=== PATIENT | female | born 1965 | race Caucasian/White ===

== ENCOUNTER 2017-03-30 18:42 | Emergency (ER) | payer BC, OTHER ==
[2017-03-30 18:57] VITALS: TEMP 99.3; O2SAT 94
--- NOTE | 2017-03-30 19:02 | ED.PDOC ---
History of Present Illness - General Chief Complaint: Respiratory Problem Stated Complaint: fever, sob Time Seen by Provider: 03/30/17 18:45 Source: patient Exam Limitations: no limitations - History of Present Illness Initial Comments: the patient is a 52-year-old female presenting to the emergency room secondary to mild cough, congestion and mild sore throat along with a runny nose and mild pressure in her ears. No definite fevers but there is a mild elevation in her basal temperature today. No syncope or near-syncope. No recurrent pneumonias. She has increasing pressure in her sinuses just today. Timing/Duration: 24 hours Severity: moderate Improving Factors: nothing Worsening Factors: nothing Associated Symptoms: cough, malaise Allergies/Adverse Reactions: Allergies Penicillins Allergy (Verified 03/30/17 18:54) Review of Systems - Review of Systems Constitutional: States: fever, malaise EENTM: States: nose congestion, throat pain Respiratory: States: cough Cardiology: States: no symptoms reported Gastrointestinal/Abdominal: States: no symptoms reported Genitourinary: States: no symptoms reported Musculoskeletal: States: no symptoms reported Skin: States: no symptoms reported Neurological: States: no symptoms reported Endocrine: States: no symptoms reported All other Systems: No Change from Baseline Past Medical History (General) - Patient Medical History Hx Hypertension: Yes Surgical History: other - Vaccination History Hx Influenza Vaccination: Yes - Social History Hx Tobacco Use: Yes Hx Alcohol Use: Yes - 2 glasses wine hs Hx Substance Use: No Hx Substance Use Treatment: No Hx Depression: No - Activities of Daily Living Hospice Agency (if applicable):: None - Female History Patient is a Female of Child Bearing Age (10 -59 yrs old): Yes Patient : No Family Medical History - Family History Mother Family History: Unknown Physical Exam - Physical Exam General Appearance: Alert, Comfortable, No apparent distress Eye Exam: bilateral normal Ears, Nose, Throat: hearing grossly normal, nasal congestion, pharyngeal erythema Neck: non-tender, full range of motion Respiratory: chest non-tender, lungs clear, normal breath sounds, no respiratory distress, no accessory muscle use Cardiovascular/Chest: normal peripheral pulses, regular rate, rhythm, no edema Peripheral Pulses: radial,right: 2+, radial,left: 2+, dorsalis pedis,right: 2+, dorsalis pedis,left: 2+ Extremity: normal range of motion, normal inspection, no pedal edema, normal capillary refill 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 She needs to keep herself well-hydrated. She can take 2 Aleve twice a day with food. She is to additionally shrimp picker some Flonase or Rhinocort and use 1 spray per nostril twice a day for the next 5 days. She can continue her Mucinex nasal spray as needed. Additionally if her nose is running, and she can use Zyrtec 10 mg twice daily as well. A humidifier at night may prove beneficial. ER warnings were given for any significant worsening. She should expect symptoms to last between 5 and 7 days. No evidence of pneumonia at this time. she should consider herself contagious at this time. Departure - Departure Clinical Impression: Common cold Disposition: Discharge to Home or Self Care Condition: Fair Departure Forms: ED Discharge - Pt. Copy, Patient Portal Self Enrollment Instructions: DI for Common Cold Diet: regular diet Activity: increase activity as tolerated Referrals: Roly Garcia MD [Family Provider] - 1-2 Weeks Additional Instructions: the patient is presenting with a viral upper respiratory tract infection. She needs to keep herself well-hydrated. She can take 2 Aleve twice a day with food. She is to additionally shrimp picker some Flonase or Rhinocort and use 1 spray per nostril twice a day for the next 5 days. She can continue her Mucinex nasal spray as needed. Additionally if her nose is running, and she can use Zyrtec 10 mg twice daily as well. A humidifier at night may prove beneficial. ER warnings were given for any significant worsening. She should expect symptoms to last between 5 and 7 days. No evidence of pneumonia at this time. she should consider herself contagious at this time.
[2017-03-30 19:11] VITALS: BP 150/91
== END 2017-03-30 19:11 | disposition home or self-care (01) ==
LOC: ER 18:42
DX: J00 Acute nasopharyngitis [common cold] (principal); I10 Essential (primary) hypertension; Z87.891 Personal history of nicotine dependence; Z88.0 Allergy status to penicillin

== ENCOUNTER → 2019-03-09 | Outpatient (CLI) | payer BC ==
--- NOTE | 2019-03-09 12:11 | CT ---
EXAM DESCRIPTION: Abdomen/Pelvis w/wo Contrast: Computed Tomography. CLINICAL HISTORY: ABDOMINAL PAIN COMPARISON: None. TECHNIQUE: Spiral-axial scans at 5 x 5 mm intervals through the abdomen and pelvis before and after 75 mL Optiray 320 nonionic IV contrast. No oral contrast. Coronal and sagittal 2.0 mm reconstructions. 5 mm Delayed helical-axial scans, liver through the pubic symphysis. No adverse reactions. Total Exam DLP 1560.89 mGy - cm. This exam was performed according to our departmental CT dose-optimization program which includes automated exposure control, adjustment of the mA and/or kV according to patient size and/or use of iterative reconstruction technique; to reduce radiation dose to as low as reasonably achievable (ALARA). FINDINGS: Lung bases and pleura: Negative. Bilateral saline breast implants partially visualized. Liver, Stomach, Spleen, Adrenal Glands: Fatty density of the liver. Long axis right lobe 18.2 cm. Stomach and other solid organs negative. Pancreas, Gallbladder, Ducts: Gallbladder visualized. Other organs unremarkable. Kidneys and Ureters: Negative. Mesentery: Unremarkable. Aorta: Moderate atherosclerotic calcification and intimal wall thickening infrarenal aorta for patient's age, also involvement of the common left iliac artery. Small Bowel: Minimal gas distally with no distention. Terminal Ileum/Cecum: Normal caliber. Long retrocecal appendix normal caliber. No fatty inflammatory changes. Colon: Normal caliber. Fecal matter in the sigmoid which is minimally redundant. No complications. Pelvic Organs: Uterus anteverted. Enhancing inhomogeneous masses measuring 3.2 cm at the fundus and 2.5 cm left body. Possible third juxta capsular fibroid on the right measuring 1.3 cm. Smaller juxta capsular fibroid left fundus. Minimal fluid in the cul-de-sac. Right ovary not well seen. Spine and Bony Pelvis: Minimal spondylosis lower thoracic spine. Abdominal Wall/Back Soft Tissues: Small fatty right inguinal hernia not containing bowel. Tiny diastases umbilicus not containing bowel. IMPRESSION: 1. Mildly enlarged steatosis of the liver with no focal lesions. 2. Inhomogeneous enhancing masses in the uterus most likely fibroids. Minimal fluid in the cul-de-sac. Right ovary not well seen. 3. Small right fatty inguinal hernia not containing bowel. 4. Moderate atherosclerotic calcifications in the infrarenal aorta remarkable for patient's age. Electronically signed by: Dany Hickman MD 03/09/2019 12:09 PM CDT
== END ==
LOC: CT 08:09
PROVIDERS: ATTEND Obstetrics & Gynecology
DX: K76.0 Fatty (change of) liver, not elsewhere classified (principal); N85.9 Noninflammatory disorder of uterus, unspecified; K40.90 Unilateral inguinal hernia, without obstruction or gangrene, not specified as recurrent; I70.0 Atherosclerosis of aorta; R14.0 Abdominal distension (gaseous)

== ENCOUNTER 2019-03-30 05:36 | Day surgery (SDC) | payer BC ==
[2019-03-30] MEDS ORDERED: LIDOCAINE 1% 10 ML VIAL INJ ONE (07:00)
[2019-03-30] MEDS ORDERED: PROPOFOL 200 MG/20 ML VIAL IV ONE (07:00)
[2019-03-30] MEDS: LACTATED RINGERS 1,000 ML ONE (07:45)
--- NOTE | 2019-03-30 09:16 | OP ---
DATE OF PROCEDURE: 03/30/19 INDICATION: 1. Screening colonoscopy. FINAL DIAGNOSIS: 1. Normal colon. PROCEDURE: 1. Colonoscopy. SURGEON: Roly Goetz MD ANESTHESIA: General. PROCEDURE: After complete informed consent, the patient was brought to the Operative Suite in the left lateral position. General anesthesia was induced. Externally, she had a couple of anal tags, but no evidence of fissure, fistula or thrombosed hemorrhoid. Digital rectal exam was normal. The scope was introduced and carefully advanced without difficulty or significant looping all the way to the cecum. It was then carefully withdrawn with an adequate prep. Through all the colon, no significant polyps or diverticulosis was identified. Retroflexion also revealed only small hemorrhoid and no other findings. She tolerated the procedure well and was taken to Recovery to be discharged with recommendation for 10 year colonoscopy screening. #[id number] MTDD
[2019-03-30 09:46] VITALS: BP 121/73; TEMP 96.6; O2SAT 99
== END 2019-03-30 09:30 | disposition home or self-care (01) ==
LOC: AMB 05:36
PROVIDERS: ATTEND Surgery
DX: Z12.11 Encounter for screening for malignant neoplasm of colon (principal); K64.4 Residual hemorrhoidal skin tags; F17.210 Nicotine dependence, cigarettes, uncomplicated; I10 Essential (primary) hypertension; K76.0 Fatty (change of) liver, not elsewhere classified; G47.00 Insomnia, unspecified; Z88.0 Allergy status to penicillin; Z79.899 Other long term (current) drug therapy
CPT/HCPCS: 00812; 45378; J3490; J7120